=== PATIENT | female | born 1955 | race Hispanic/Latino ===

== ENCOUNTER → 2025-03-25 | Day surgery (SDC) | payer MEDICARE ==
[~2025-03-25] MED LIST: ACETAMINOPHEN 1000 MG/100 ML IV PRN; ASPIRIN 325 MG TAB PO SCH; ASPIRIN81 MG PO; ATORVASTATIN CA20 MG PO; CELECOXIB 100 MG CAP PO SCH; DIPHENHYDRAMINE HCL INJ 50 MG/ML VIAL IV PRN; DOCUSATE SODIUM 100 MG CAP PO PRN; FENTANYL CITRATE/PF 100MCG/2 ML INJ ONE; HYDROCHLOROTHIA25 MG PO; HYDROCODONE/APAP 5MG-325MG TAB PO PRN; IBANDRONATE SO150 MG PO; LEVOTHYROXINE50 MCG PO; LIDOCAINE HCL 2% LOCAL INJ 5 ML SDV VIAL INJ ONE; LINZESS145 MCG PO; LISINOPRIL10 MG PO; METFORMIN HCL500 M1 PO; METOPROLOL SUCC50 MG PO; ONDANSETRON HCL INJ 2MG/ML 2ML 2 MG/ML VIAL IV PRN; ONDANSETRON HCL INJ 2MG/ML 2ML 2 MG/ML VIAL ONE; PROPOFOL IV EMULSION 10 MG/ML 20 ML VIAL ONE; ROPIVACAINE/EPI/CLONIDINE/KET 50 ML SYRINGE INJ ONE; SERTRALINE HCL50 MG PO; SODIUM CHLORIDE 0.9% 1000ML 1,000 ML IV SCH
[2025-03-25] MEDS: CEFAZOLIN SODIUM 2 GM ONE (07:24)
[2025-03-25] MEDS: GABAPENTIN 300 MG CAP ONE (07:24)
[2025-03-25] MEDS: LACTATED RINGER'S 1,000 ML ONE (07:24)
[2025-03-25] MEDS: CELECOXIB 200 MG CAP ONE (07:25)
[2025-03-25] MEDS: DEXAMETHASONE SOD PHOS 10 MG/1 ML VIAL ONE (07:25)
[2025-03-25 10:06] VITALS: TEMP 97.8
[2025-03-25] MEDS: HYDROCODONE/APAP 7.5MG-325MG 1 EA TAB PO PRN (10:50)
[2025-03-25 13:00] VITALS: BP 118/74; PULSE 82; RESP 15; O2SAT 95
== END | disposition home health service (06) ==
LOC: OR 06:56
PROVIDERS: ATTEND Specialist
DX: M17.12 Unilateral primary osteoarthritis, left knee (principal); I11.0 Hypertensive heart disease with heart failure; I50.9 Heart failure, unspecified; E78.5 Hyperlipidemia, unspecified; E11.9 Type 2 diabetes mellitus without complications; E03.9 Hypothyroidism, unspecified; Z79.899 Other long term (current) drug therapy; Z79.84 Long term (current) use of oral hypoglycemic drugs; Z79.890 Hormone replacement therapy; Z01.812 Encounter for preprocedural laboratory examination
CPT/HCPCS: 27447; 36415; 71046; 73560; 82948; 86850; 86900; 97110; 97116; 97161; C1713 ×2; C1776 ×3; J1100; J2003; J2405; J2704; J3010; J7121